=== PATIENT | male | born 1975 | race Two or more races ===

== ENCOUNTER → 2024-10-19 | Emergency (ER) | payer OTHER ==
[~2024-10-19] VITALS: Ht 172.7 cm; Wt 74.8 kg
[~2024-10-19] MED LIST: LIDOCAINE HCL 1%/EPINEPHRINE 20ML VIAL IJ ONE; MESALAMINE800 MG PO
[2024-10-19 11:11] LABS: HEMATOCRIT 44.4 % (39.0-48.0); HEMOGLOBIN 14.8 g/dL (13-16.00); MEAN CELL VOLUME 90.3 fL (80.0-100.00); MEAN CORPUSCULAR HEMOGLOBIN 30.2 pg (27.00-32.0); MEAN CORPUSCULAR HGB CONC 33.4 g/dl (32.0-36.0); PLATELET COUNT 306 K/uL (150-450); RED BLOOD COUNT 4.92 M/uL (4.00-6.00); RED CELL DISTRIBUTION WIDTH 13.7 % (11.5-14.5)
[2024-10-19 11:53] LABS: CALCIUM 9.1 mg/dL (8.5-10.1); CREATININE SERUM 1.04 mg/dL (0.70-1.30); GFR 75.59; POTASSIUM 4.04 mEq/L (3.5-5.1)
== END | disposition home or self-care (01) ==
LOC: ER 06:25
PROVIDERS: General Practice
DX: S01.511A Laceration without foreign body of lip, initial encounter (principal); W19.XXXA Unspecified fall, initial encounter; Y93.89 Activity, other specified; Y92.89 Other specified places as the place of occurrence of the external cause; Y99.9 Unspecified external cause status

== ENCOUNTER 2024-11-08 14:19 | Emergency (ER) | payer OTHER ==
[~2024-11-08] VITALS: Ht 172.7 cm; Wt 74.8 kg
[~2024-11-08 14:19] MED LIST changes: -LIDOCAINE HCL 1%/EPINEPHRINE 20ML VIAL IJ ONE
== END 2024-11-08 17:45 | disposition home or self-care (01) ==
LOC: ER 14:21
DX: F41.9 Anxiety disorder, unspecified (principal)